=== PATIENT | female | born 1975 | race Caucasian/White ===

== ENCOUNTER 2017-05-21 19:01 | Emergency (ER) | payer OTHER ==
[~2017-05-21] VITALS: Ht 154.9 cm; Wt 63.6 kg
[~2017-05-21 19:01] MED LIST: ATIVAN1 MG PO; BACTRIM,SEPT1 TABLET PO; CATAPRES0.1 MG PO; CLINDAMYCIN HC150 MG PO; KLONOPIN0.25 MG PO; METHADONE HCL40 MG PO; METHADONE10 MG PO; Methadone HCl PO; PERCOCET 5/31 TABLET PO; SEROQUEL100 MG PO; TYLENOL WITH C1 EACH PO; Xanax PO; ZOFRAN4 MG PO; [UNRECOGNIZED DRUG - OTHER]
[2017-05-21 20:23] LABS: HEMATOCRIT 40.3 % (36.0-46.0); MCH 31.6 PG (29.0-34.0); MCV 90.4 FL (83-99); MEAN PLAT.VOLUME 11.3 uM^3 (9.5-12.4); PLATELET COUNT 218 K/uL (156-360); RBC DIS.WIDTH-CV 11.9 % (11.8-14.6); RBC DIS.WIDTH-SD 39.4 % (39-53); RED BLOOD COUNT 4.46 M/uL (3.80-5.20); WHITE BLOOD COUNT 11.8 K/uL (4.1-10.2)
[2017-05-21 20:32] LABS: CHLORIDE 107 mEq/L (99-109); POTASSIUM 3.5 mEq/L (3.7-5.4); SODIUM 138 mEq/L (136-147)
[2017-05-21 20:35] LABS: GLUCOSE 116 mg/dL (70-99)
[2017-05-21 20:36] LABS: ANION GAP 11 MEQ/L (2-14)
[2017-05-21 20:37] LABS: TOTAL BILIRUBIN 0.6 mg/dL (0.0-1.0)
[2017-05-21 20:38] LABS: ALKALINE PHOSPHATASE 44 IU/L (3-129); GFR ESTIMATE (CALCULATED) > 59 mL/min/
[2017-05-21 20:39] LABS: UREA NITROGEN (BUN) 12 mg/dL (9-23)
[2017-05-21 20:42] LABS: LIPASE 6 U/L (1.0-51.0)
[2017-05-21 20:50] LABS: QUANTITATIVE HCG < 4.0 MIU/ML
[2017-05-21 21:42] LABS: ADD MIUA? YES; BILIRUBIN NEGATIVE; BLOOD NEGATIVE; COLOR YELLOW ((YELLOW)); GLUCOSE (STRIP) 50; KETONES 80; LEUKOCYTES NEGATIVE; NITRITE NEGATIVE; PROTEIN (STRIP) 30; SPECIFIC GRAVITY 1.018 (1.000-1.030); UROBILINOGEN 0.2 MG/DL (0.2-1.0)
[2017-05-21 21:43] LABS: BACTERIA RARE /HPF; EPITHELIAL CELLS 1+ /HPF; MUCUS TRACE /LPF; RED BLOOD CELLS 0-5 /HPF (0-5); UCUL ADDED? NO; WHITE BLOOD CELLS 0-5 /HPF (0-5)
[2017-05-21] MEDS ORDERED: REGLAN5 MG PO (22:32)
[2017-05-21 23:21] VITALS: BP 148/82
== END 2017-05-21 23:35 | disposition home or self-care (01) ==
LOC: EME 19:01
PROVIDERS: Physician Assistant Medical
DX: R11.2 Nausea with vomiting, unspecified (principal); R19.7 Diarrhea, unspecified; R50.9 Fever, unspecified; R53.1 Weakness; R42 Dizziness and giddiness; R10.84 Generalized abdominal pain; Z90.49 Acquired absence of other specified parts of digestive tract; F17.200 Nicotine dependence, unspecified, uncomplicated
CPT/HCPCS: 80053; 81003; 83690; 84702; 85027; 99281; 99285; J1630; J2405; J2765; J7030; S0028

== ENCOUNTER 2017-09-16 20:03 | Emergency (ER) | payer OTHER ==
[~2017-09-16] VITALS: Ht 154.9 cm; Wt 63.1 kg
[~2017-09-16 20:03] MED LIST changes: +REGLAN5 MG PO
[2017-09-16 20:48] LABS: HEMATOCRIT 42.7 % (36.0-46.0); MCH 31.8 PG (29.0-34.0); MCHC 35.1 G/DL (30.0-36.0); MCV 90.5 FL (83-99); MEAN PLAT.VOLUME 11.1 uM^3 (9.5-12.4); PLATELET COUNT 244 K/uL (156-360); RBC DIS.WIDTH-CV 12.1 % (11.8-14.6); RBC DIS.WIDTH-SD 40.3 % (39-53); RED BLOOD COUNT 4.72 M/uL (3.80-5.20); WHITE BLOOD COUNT 9.2 K/uL (4.1-10.2)
[2017-09-16 20:59] LABS: CHLORIDE 102 mEq/L (99-109); SODIUM 140 mEq/L (136-147)
[2017-09-16 21:02] LABS: GLUCOSE 132 mg/dL (70-99)
[2017-09-16 21:03] LABS: ANION GAP 14 MEQ/L (2-14)
[2017-09-16 21:04] LABS: TOTAL BILIRUBIN 0.6 mg/dL (0.0-1.0)
[2017-09-16 21:05] LABS: ALKALINE PHOSPHATASE 50 IU/L (3-129); GFR ESTIMATE (CALCULATED) > 59 mL/min/
[2017-09-16 21:06] LABS: UREA NITROGEN (BUN) 19 mg/dL (9-23)
[2017-09-16 21:09] LABS: LIPASE 8 U/L (1.0-51.0)
[2017-09-16 23:38] LABS: ADD MIUA? YES; BILIRUBIN NEGATIVE; BLOOD SMALL; COLOR YELLOW ((YELLOW)); GLUCOSE (STRIP) 50; KETONES 80; LEUKOCYTES NEGATIVE; NITRITE NEGATIVE; PROTEIN (STRIP) 100; UROBILINOGEN 0.2 MG/DL (0.2-1.0)
[2017-09-16 23:41] LABS: INTERNAL CONTROL VALID? YES
[2017-09-16 23:42] LABS: BACTERIA RARE /HPF; EPITHELIAL CELLS 2+ /HPF; MUCUS 1+ /LPF; RED BLOOD CELLS 0-5 /HPF (0-5); WHITE BLOOD CELLS 0-5 /HPF (0-5)
[2017-09-16] MEDS ORDERED: REGLAN10 MG PO (23:58)
[2017-09-17 00:15] VITALS: BP 158/89
== END 2017-09-17 00:35 | disposition home or self-care (01) ==
LOC: EME 20:03
PROVIDERS: Physician Assistant
DX: R11.2 Nausea with vomiting, unspecified (principal); F17.210 Nicotine dependence, cigarettes, uncomplicated; F41.9 Anxiety disorder, unspecified; Z90.49 Acquired absence of other specified parts of digestive tract
CPT/HCPCS: 80053; 81003; 83690; 84703; 85027; 99281; 99285; J1200; J2060; J2765; J7030

== ENCOUNTER 2018-02-19 09:56 | Emergency (ER) | payer OTHER ==
[~2018-02-19] VITALS: Ht 165.1 cm; Wt 57.4 kg
[~2018-02-19 09:56] MED LIST changes: +REGLAN10 MG PO
[2018-02-19 10:49] LABS: BASOPHIL (%) 0.1 % (0-1); EOSINOPHIL (%) 0.1 % (0-5); HEMATOCRIT 41.5 % (36.0-46.0); HEMOGLOBIN 14.8 G/DL (11.9-15.5); IMMATURE GRANULOCYTE (%) 0.2 % (0.0-0.7); LYMPHOCYTE (%) 18.4 % (15-42); LYMPHOCYTE COUNT 1.6 K/uL (1.0-2.8); MCHC 35.7 G/DL (30.0-36.0); MCV 89.8 FL (83-99); MONOCYTE (%) 8.1 % (3-12); MONOCYTE COUNT 0.7 K/uL (0-0.8); NEUTROPHIL (%) 73.1 % (45-76); NEUTROPHIL COUNT 6.2 K/uL (1.8-6.4); PLATELET COUNT 256 K/uL (156-360); RBC DIS.WIDTH-SD 39.3 % (39-53); RED BLOOD COUNT 4.62 M/uL (3.80-5.20); WHITE BLOOD COUNT 8.5 K/uL (4.1-10.2)
[2018-02-19 10:56] LABS: CHLORIDE 101 mEq/L (99-109); POTASSIUM 3.4 mEq/L (3.7-5.4); SODIUM 140 mEq/L (136-147)
[2018-02-19 10:58] LABS: GLUCOSE 105 mg/dL (70-99)
[2018-02-19 11:02] LABS: CREATININE 0.7 mg/dL (0.6-1.3); GFR ESTIMATE (CALCULATED) > 59 mL/min/
[2018-02-19 11:03] LABS: UREA NITROGEN (BUN) 16 mg/dL (9-23)
[2018-02-19 11:10] LABS: QUANTITATIVE HCG < 4.0 MIU/ML
[2018-02-19 13:32] LABS: APPEARANCE CLEAR ((CLEAR)); BILIRUBIN NEGATIVE; BLOOD SMALL; COLOR YELLOW ((YELLOW)); GLUCOSE (STRIP) 50; KETONES 80; LEUKOCYTES NEGATIVE; NITRITE NEGATIVE; PROTEIN (STRIP) 100; SPECIFIC GRAVITY 1.035 (1.000-1.030); UROBILINOGEN 0.2 MG/DL (0.2-1.0)
[2018-02-19 13:38] LABS: BACTERIA RARE /HPF; EPITHELIAL CELLS RARE /HPF; MUCUS 4+ /LPF; WHITE BLOOD CELLS 0-5 /HPF (0-5)
[2018-02-19 13:41] LABS: AMPHETAMINE NEGATIVE (500 ng/mL); BARBITURATES NEGATIVE (200 ng/mL); BENZODIAZEPINES PRESUMPTIVE POSITIVE (150 ng/mL); BUPRENORPHINE NEGATIVE (10 ng/mL); COCAINE NEGATIVE (150 ng/mL); METHADONE PRESUMPTIVE POSITIVE (200 ng/mL); METHAMPHETAMINE NEGATIVE (500 ng/mL); OPIATES (MORPHINE) PRESUMPTIVE POSITIVE (100 ng/mL); OXYCODONE NEGATIVE (100 ng/mL); PHENCYCLIDINE NEGATIVE (25 ng/mL); PROPOXYPHENE NEGATIVE (300 ng/mL); THC CANNABINOIDS PRESUMPTIVE POSITIVE (50 ng/mL); TRICYCLIC ANTIDEPRESSANTS PRESUMPTIVE POSITIVE (300 ng/mL)
[2018-02-19] MEDS ORDERED: ZOFRAN ODT4 MG PO (14:07)
[2018-02-19] MEDS ORDERED: BENTYL20 MG PO (14:07)
[2018-02-19] MEDS ORDERED: IMODIUM A-D2 M2 PO (14:07)
[2018-02-19 14:17] LABS: BENZODIAZEPINES, URINE SCREEN POSITIVE (200 ng/mL)
[2018-02-19 14:34] VITALS: BP 111/65
== END 2018-02-19 14:37 | disposition home or self-care (01) ==
LOC: EME 09:56
PROVIDERS: Emergency Medicine
DX: K52.9 Noninfective gastroenteritis and colitis, unspecified (principal); F19.10 Other psychoactive substance abuse, uncomplicated; F17.200 Nicotine dependence, unspecified, uncomplicated
CPT/HCPCS: 80048; 81003; 84702; 84999; 85025; 99281; 99285; J1885; J2405; J7030

== ENCOUNTER 2018-06-04 13:16 | Emergency (ER) | payer OTHER ==
[~2018-06-04] VITALS: Ht 154.9 cm; Wt 59.4 kg
[~2018-06-04 13:16] MED LIST changes: +BENTYL20 MG PO; +IMODIUM A-D2 M2 PO; +ZOFRAN ODT4 MG PO
[2018-06-04 14:12] LABS: HEMATOCRIT 41.8 % (36.0-46.0); HEMOGLOBIN 14.6 G/DL (11.9-15.5); MCH 31.9 PG (29.0-34.0); MCHC 34.9 G/DL (30.0-36.0); MCV 91.3 FL (83-99); PLATELET COUNT 293 K/uL (156-360); RBC DIS.WIDTH-CV 12.2 % (11.8-14.6); RED BLOOD COUNT 4.58 M/uL (3.80-5.20); WHITE BLOOD COUNT 6.6 K/uL (4.1-10.2)
[2018-06-04 14:22] LABS: ALBUMIN 4.7 g/dL (3.2-4.8); CHLORIDE 103 mEq/L (99-109); POTASSIUM 4.5 mEq/L (3.7-5.4); SODIUM 139 mEq/L (136-147)
[2018-06-04 14:25] LABS: GLUCOSE 135 mg/dL (70-99); TOTAL PROTEIN 7.6 g/dL (6.4-8.3)
[2018-06-04 14:26] LABS: TOTAL BILIRUBIN 0.9 mg/dL (0.0-1.0)
[2018-06-04 14:28] LABS: ALKALINE PHOSPHATASE 57 IU/L (3-129); CREATININE 0.7 mg/dL (0.6-1.3); GFR ESTIMATE (CALCULATED) > 59 mL/min/
[2018-06-04 14:29] LABS: UREA NITROGEN (BUN) 12 mg/dL (9-23)
[2018-06-04 14:30] LABS: AST (GOT) 18 IU/L (2-34)
[2018-06-04 14:31] LABS: ALT (GPT) 20 IU/L (3-49)
[2018-06-04 14:41] LABS: QUANTITATIVE HCG < 4.0 MIU/ML
[2018-06-04 17:09] LABS: APPEARANCE CLEAR ((CLEAR)); BILIRUBIN NEGATIVE; BLOOD NEGATIVE; COLOR YELLOW ((YELLOW)); GLUCOSE (STRIP) 50; KETONES 80; LEUKOCYTES NEGATIVE; NITRITE NEGATIVE; PROTEIN (STRIP) 100; SPECIFIC GRAVITY 1.029 (1.000-1.030); UROBILINOGEN 0.2 MG/DL (0.2-1.0)
[2018-06-04 17:11] LABS: BACTERIA RARE /HPF; EPITHELIAL CELLS 1+ /HPF; MUCUS 2+ /LPF; RED BLOOD CELLS 0-5 /HPF (0-5); UCUL ADDED? NO; WHITE BLOOD CELLS 0-5 /HPF (0-5)
[2018-06-04] MEDS ORDERED: ZOFRAN4 MG PO (17:44)
[2018-06-04] MEDS ORDERED: PHENERGAN25 MG PR (17:50)
[2018-06-04 17:59] VITALS: BP 129/76
== END 2018-06-04 18:12 | disposition home or self-care (01) ==
LOC: EME 13:16
DX: R11.2 Nausea with vomiting, unspecified (principal); F41.9 Anxiety disorder, unspecified; F19.239 Other psychoactive substance dependence with withdrawal, unspecified; F17.200 Nicotine dependence, unspecified, uncomplicated; Z90.49 Acquired absence of other specified parts of digestive tract
CPT/HCPCS: 80053; 81003; 84702; 85027; 99281; 99285; C9113; J1630; J2060; J2405; J7030